=== PATIENT | female | born 1960 | race Caucasian/White ===

== ENCOUNTER 2016-08-07 21:43 | Inpatient (IN) | payer OTHER ==
[2016-08-07] MEDS ORDERED: Diltiazem 25 MG/5 ML SDV IVPUSH ONE (23:09)
--- NOTE | 2016-08-07 23:09 | EDM.PDOC ---
ED HISTORY OF PRESENT ILLNESS - General Chief Complaint: Cardiovascular Problem Stated Complaint: IRREGULAR HEART BEAT Time Seen by Provider: 08/07/16 22:18 Source of Information: Reports: Patient, Family (), RN notes reviewed History Limitations: Reports: No limitations - History of Present Illness INITIAL COMMENTS - FREE TEXT/NARRATIVE: The patient states that she was diagnosed with atrial flutter in 2011. She received medical treatment, and the atrial flutter terminated on its own. She then had atrial fib/atrial flutter in 2013. She was again treated with medication, and a workup included an echocardiogram, which apparently demonstrated a growth in the aortic arch area. The Cardiologists were apparently not sure if the growth had anything to do with the patient's dysrhythmia. The patient was placed on Eliquis, which she took for 2 years, discontinuing about one year ago. The patient states that she developed a weird neck and chest sensation this past , 08/03/2016. She felt poorly over the weekend and slept a lot, through yesterday. She states that she felt clammy and fatigued yesterday, and again today. Around noon today, the patient noticed that her heart rate was very rapid after going downstairs. Around 17:00 today she checked her pulse and found it to be irregular. She realized that she was likely back in atrial fibrillation. She states that she has had a few twinges of discomfort in her chest, but no chest pain, per se. No dyspnea, nausea, or diaphoresis. She states that she is constipated. No vomiting or diarrhea. No urinary symptoms. 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: Neurological History: Reports: Seizure (Following a traumatic brain injury) Endocrine/Metabolic History: Reports: Obesity/BMI 30+ - Past Surgical History HEENT Surgical History: Reports: Tonsillectomy GI Surgical History: Reports: Cholecystectomy, Colonoscopy, Polypectomy Female Surgical History: Reports: D&C (x 1) Neurological Surgical History: Reports: Other (see below) (Craniotomy and cranioplasty) Social & Family History - Tobacco Use Smoking Status *Q: Never Smoker - Alcohol Use Alcohol Use History: No - Recreational Drug Use Recreational Drug Use: No - Living Situation & Occupation Living situation: Reports: , with spouse, with family (2 kids) 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 Denies: diaphoresis HEENT: Reports: No symptoms Respiratory: Reports: No Symptoms. Denies: Shortness of Breath Cardiovascular: Reports: No symptoms Endocrine: Reports: no symptoms GI/Abdominal: Reports: Constipation. Denies: Diarrhea, Nausea, Vomiting : Reports: no symptoms. Denies: dysuria Musculoskeletal: Reports: no symptoms Skin: Reports: no symptoms Neurological: Reports: No Symptoms Hematologic/Lymphatic: Reports: no symptoms Immunologic: Reports: no symptoms ED EXAM, GENERAL - Physical Exam Exam: See Below Exam Limited By: No limitations General Appearance: alert, WD/WN, no apparent distress Eye Exam: bilateral eye: EOMI, normal inspection Ears: normal external exam, hearing grossly normal Ear Exam: bilateral ear: auricle normal Nose: normal inspection, no blood Throat/Mouth: Normal inspection, Normal lips, Normal voice, No airway compromise Head: atraumatic, normocephalic Neck: normal inspection, full range of motion Respiratory/Chest: no respiratory distress, lungs clear, normal breath sounds, no accessory muscle use, chest non-tender Cardiovascular: normal peripheral pulses, no edema, no gallop, no JVD, no murmur , no rub, tachycardia, irregularly irregular Peripheral Pulses: 4+: radial (L), radial (R) GI/Abdominal: normal bowel sounds, soft, non tender, no organomegaly, no distention, no abnormal bruit, no mass, other (Obese) Extremities: normal inspection, normal range of motion, normal capillary refill Neurological: alert, oriented, normal cognition, no motor/sensory deficits Psychiatric: normal affect Skin Exam: Warm, Dry, Intact, Normal color, No rash Lymphatic: no adenopathy EKG INTERPRETATION EKG Date: 08/07/16 Time: 21:53 Rhythm: a-fib (Atrial fibrillation) Rate (beats/min): 158 [place]: normal P-wave: absent QRS: normal ST-T: normal QT: normal Comparison: NA - no prior EKG Course - Vital Signs Last Recorded V/S: Last Vital Signs Temp 36.1 C 08/07/16 21:57 Pulse 82 08/08/16 02:54 Resp 29 H 08/07/16 21:57 BP 123/98 H 08/08/16 02:54 Pulse Ox 97 08/07/16 21:57 - Orders/Labs/Meds Orders: Active Orders 24 hr Category Date Time Status Admission Status [Patient Status] [ADT] Routine ADT 08/08/16 02:53 Active EKG 12 Lead [EKG Documentation Completion] [RC] STAT Care 08/07/16 22:46 Active Ang Chest [CT] Stat Exams 08/07/16 23:43 Taken Chest 2V [CR] Stat Exams 08/07/16 23:01 Taken CBC W/O DIFF,HEMOGRAM [HEME] MOTH@0700 Lab 08/10/16 07:00 Ordered CBC W/O DIFF,HEMOGRAM [HEME] MOTH@0700 Lab 08/14/16 07:00 Ordered CBC W/O DIFF,HEMOGRAM [HEME] MOTH@0700 Lab 08/17/16 07:00 Ordered CBC W/O DIFF,HEMOGRAM [HEME] MOTH@0700 Lab 08/21/16 07:00 Ordered CBC W/O DIFF,HEMOGRAM [HEME] MOTH@0700 Lab 08/24/16 07:00 Ordered CBC W/O DIFF,HEMOGRAM [HEME] MOTH@0700 Lab 08/28/16 07:00 Ordered Diltiazem [Cardizem] 100 mg Med 08/07/16 23:15 Active Sodium Chloride 0.9% [Normal Saline] 100 ml IV TITRATE Sodium Chloride 0.9% [Normal Saline] 1,000 ml Med 08/07/16 23:45 Active IV ASDIRECTED Medication Orders Diltiazem HCl 100 mg/ Sodium (Chloride) 100 mls @ 10 mls/hr IV TITRATE DIMITRIS; 10 MG/HR PRN Reason: Protocol Last Titration: 08/08/16 01:19 Dose: 20 mg/hr, 20 mls/hr Titration: 08/08/16 00:07 Dose: 15 mg/hr, 15 mls/hr Admin: 08/07/16 23:26 Dose: 10 mg/hr, 10 mls/hr Sodium Chloride (Normal Saline) 1,000 mls @ 150 mls/hr IV ASDIRECTED DIMITRIS Last Admin: 08/07/16 23:18 Dose: 150 mls/hr Labs: Laboratory Tests 08/07/16 08/07/16 08/07/16 Range/Units 22:35 22:35 22:35 WBC 15.63 H (3.98-10.04) K/mm3 RBC 5.28 H (3.98-5.22) M/mm3 Hgb 14.7 (11.2-15.7) gm/L Hct 45.3 H (34.1-44.9) % MCV 85.8 (79.4-94.8) fl MCH 27.8 (25.6-32.2) pg MCHC 32.5 (32.2-35.5) g/dl RDW Std Deviation 43.6 (36.4-46.3) fL Plt Count 303 (182-369) K/mm3 MPV 9.9 (9.4-12.3) fl Neutrophils % (Manual) 52 (40-60) % Band Neutrophils % 0 (0-10) % Lymphocytes % (Manual) 26 (20-40) % Atypical Lymphs % 5 % Monocytes % (Manual) 10 (2-10) % Eosinophils % (Manual) 6 H (0.7-5.8) % Basophils % (Manual) 1 (0.1-1.2) Platelet Estimate Adequate Plt Morphology Comment Normal RBC Morph Comment Normal PT 10.5 (8.0-13.0) SECONDS INR 0.97 APTT 30 (22-36) SECONDS D-Dimer, Quantitative 1.15 H (0.19-0.59) mg/L Sodium 140 (136-145) mEq/L Potassium 4.2 (3.5-5.1) mEq/L Chloride 107 (98-107) mEq/L Carbon Dioxide 23 (21-32) mEq/L Anion Gap 14.2 (5-15) BUN 14 (7-18) mg/dL Creatinine 0.9 (0.55-1.02) mg/dL Est Cr Clr Drug Dosing 80.80 mL/min Estimated GFR (MDRD) > 60 (>60) mL/min BUN/Creatinine Ratio 15.6 (14-18) Glucose 105 (74-106) mg/dL Calcium 9.0 (8.5-10.1) mg/dL Total Bilirubin 0.2 (0.2-1.0) mg/dL AST 16 (15-37) U/L ALT 27 (14-59) U/L Alkaline Phosphatase 156 H (46-116) U/L Troponin I < 0.017 (0.00-0.056) ng/mL B-Natriuretic Peptide (0-100) pg/mL Total Protein 7.4 (6.4-8.2) g/dl Albumin 3.5 (3.4-5.0) g/dl Globulin 3.9 gm/dL Albumin/Globulin Ratio 0.9 L (1-2) TSH 3rd Generation 4.475 H (0.358-3.74) uIU/mL 08/07/16 Range/Units 22:35 WBC (3.98-10.04) K/mm3 RBC (3.98-5.22) M/mm3 Hgb (11.2-15.7) gm/L Hct (34.1-44.9) % MCV (79.4-94.8) fl MCH (25.6-32.2) pg MCHC (32.2-35.5) g/dl RDW Std Deviation (36.4-46.3) fL Plt Count (182-369) K/mm3 MPV (9.4-12.3) fl Neutrophils % (Manual) (40-60) % Band Neutrophils % (0-10) % Lymphocytes % (Manual) (20-40) % Atypical Lymphs % % Monocytes % (Manual) (2-10) % Eosinophils % (Manual) (0.7-5.8) % Basophils % (Manual) (0.1-1.2) Platelet Estimate Plt Morphology Comment RBC Morph Comment PT (8.0-13.0) SECONDS INR APTT (22-36) SECONDS D-Dimer, Quantitative (0.19-0.59) mg/L Sodium (136-145) mEq/L Potassium (3.5-5.1) mEq/L Chloride (98-107) mEq/L Carbon Dioxide (21-32) mEq/L Anion Gap (5-15) BUN (7-18) mg/dL Creatinine (0.55-1.02) mg/dL Est Cr Clr Drug Dosing mL/min Estimated GFR (MDRD) (>60) mL/min BUN/Creatinine Ratio (14-18) Glucose (74-106) mg/dL Calcium (8.5-10.1) mg/dL Total Bilirubin (0.2-1.0) mg/dL AST (15-37) U/L ALT (14-59) U/L Alkaline Phosphatase (46-116) U/L Troponin I (0.00-0.056) ng/mL B-Natriuretic Peptide 137 H (0-100) pg/mL Total Protein (6.4-8.2) g/dl Albumin (3.4-5.0) g/dl Globulin gm/dL Albumin/Globulin Ratio (1-2) TSH 3rd Generation (0.358-3.74) uIU/mL Meds: Medications Generic Name Dose Route Start Last Admin Trade Name Freq PRN Reason Stop Dose Admin Diltiazem HCl 100 mg/ Sodium 100 mls @ 10 mls/hr 08/07/16 23:15 08/08/16 01: 19 Chloride IV 20 mg/hr TITRATE DIMITRIS 20 mls/hr Protocol Titration 10 MG/HR Sodium Chloride 1,000 mls @ 150 mls/hr 08/07/16 23:45 08/07/16 23:18 Normal Saline IV 150 mls/hr ASDIRECTED DIMITRIS Administration Discontinued Medications Generic Name Dose Route Start Last Admin Trade Name Freq PRN Reason Stop Dose Admin Diltiazem HCl 20 mg 08/07/16 23:09 08/07/16 23:18 Diltiazem IVPUSH 08/07/16 23:10 20 mg ONETIME ONE Administration Enoxaparin Sodium 140 mg 08/08/16 02:29 08/08/16 02:45 Lovenox SUBCUT 08/08/16 02:30 140 mg ONETIME STA Administration Metoprolol Tartrate 5 mg 08/08/16 02:14 08/08/16 02:20 Lopressor IVPUSH 08/08/16 02:15 5 mg ONETIME ONE Administration Metoprolol Tartrate 5 mg 08/08/16 02:49 08/08/16 02:54 Lopressor IVPUSH 08/08/16 02:50 5 mg ONETIME ONE Administration - Radiology Interpretation Free Text/Narrative:: Two-view chest radiograph appears to be grossly normal. Cardiac silhouette is within normal limits. No pulmonary vascular congestion. No pleural effusions. No focal infiltrate. No pneumothorax. Formal read per the Radiologist pending. CT angiogram of the chest is read by [facility] as: 1. Mild pulmonary edema and trace right pleural effusion 2. 5 cm right paratracheal mass looks to be a cyst. Likely this is either GI or pericardial in origin. Necrotic an tissue would be lower on the differential diagnosis. Ideally the patient has comparison studies not available to me that would document stability. Addendum: No evidence of pulmonary embolus. - Re-Assessments/Exams Free Text/Narrative Re-Assessment/Exam: 08/08/16 02:30 Test results discussed with the patient and her . Today's workup is unremarkable, and does not explain the cause of the patient's atrial fibrillation. Her D-dimer was elevated at 1.15, but the CT angiogram is negative for a PE. Her TSH is mildly elevated, suggesting hypothyroidism, not hyperthyroidism. We have not made much progress with respect to reducing the patient's heart rate with the Cardizem IV push and drip. She is currently at 20 mg per hour. I have ordered Lopressor 5 mg, with the intention of repeating this several times, to see if we can get the patient's heart rate closer to 100. Nevertheless, we do not need to wait until the patient's heart rate is reduced before making arrangements to admit her to the ICU. Paging Dr. Lewis. 08/08/16 02:[address] Lewis at 02:49. He accepts the patient for admission to the ICU, and asks that I write bridge orders. Departure - Departure Time of Disposition: 02:53 Disposition: Admitted As Inpatient 68 Condition: fair Clinical Impression: Atrial fibrillation with rapid ventricular response Referrals: Camila Del Toro MD [Primary Care Provider] - - My Orders Last 24 Hours: My Active Orders 08/07/16 22:46 EKG 12 Lead [EKG Documentation Completion] [RC] STAT 08/07/16 23:01 Chest 2V [CR] Stat 08/07/16 23:15 Diltiazem [Cardizem] 100 mg Sodium Chloride 0.9% [Normal Saline] 100 ml IV TITRATE 08/07/16 23:43 Ang Chest [CT] Stat 08/07/16 23:45 Sodium Chloride 0.9% [Normal Saline] 1,000 ml IV ASDIRECTED 08/08/16 02:53 Admission Status [Patient Status] [ADT] Routine 08/10/16 07:00 CBC W/O DIFF,HEMOGRAM [HEME] MOTH@0700 08/14/16 07:00 CBC W/O DIFF,HEMOGRAM [HEME] MOTH@69908/17/16 07:00 CBC W/O DIFF,HEMOGRAM [HEME] MOTH@69908/21/16 07:00 CBC W/O DIFF,HEMOGRAM [HEME] MOTH@69908/24/16 07:00 CBC W/O DIFF,HEMOGRAM [HEME] MOTH@69908/28/16 07:00 CBC W/O DIFF,HEMOGRAM [HEME] MOTH@699 - Assessment/Plan Last 24 Hours: My Active Orders 08/07/16 22:46 EKG 12 Lead [EKG Documentation Completion] [RC] STAT 08/07/16 23:01 Chest 2V [CR] Stat 08/07/16 23:15 Diltiazem [Cardizem] 100 mg Sodium Chloride 0.9% [Normal Saline] 100 ml IV TITRATE 08/07/16 23:43 Ang Chest [CT] Stat 08/07/16 23:45 Sodium Chloride 0.9% [Normal Saline] 1,000 ml IV ASDIRECTED 08/08/16 02:53 Admission Status [Patient Status] [ADT] Routine 08/10/16 07:00 CBC W/O DIFF,HEMOGRAM [HEME] MOTH@69908/14/16 07:00 CBC W/O DIFF,HEMOGRAM [HEME] MOTH@69908/17/16 07:00 CBC W/O DIFF,HEMOGRAM [HEME] MOTH@69908/21/16 07:00 CBC W/O DIFF,HEMOGRAM [HEME] MOTH@69908/24/16 07:00 CBC W/O DIFF,HEMOGRAM [HEME] MOTH@69908/28/16 07:00 CBC W/O DIFF,HEMOGRAM [HEME] MOTH@699
[2016-08-07] MEDS: Diltiazem 100 MG in Sodium Chloride 0.9% 100 ML IV SCH (23:26)
[2016-08-07] MEDS ORDERED: Sodium Chloride 0.9% 1,000 ML IV SCH (23:45)
[2016-08-08] MEDS ORDERED: Metoprolol Tartrate 5 MG/5 ML SDV IVPUSH ONE ×2 (02:14→02:49)
[2016-08-08] MEDS ORDERED: Enoxaparin 150 MG/1 ML Syringe SUBCUT STA (02:29)
[2016-08-08] MEDS ORDERED: Sodium Chloride 0.9% 1,000 ML IV SCH (04:00)
[2016-08-08] MEDS: Diltiazem 100 MG in Sodium Chloride 0.9% 100 ML IV SCH ×2 (04:32→21:00)
[2016-08-08] MEDS ORDERED: Metoprolol Tartrate 5 MG/5 ML SDV ONE (04:46)
[2016-08-08] MEDS: Metoprolol Tartrate 5 MG/5 ML SDV IVPUSH PRN ×4 (04:49→16:44)
[2016-08-08] MEDS ORDERED: Digoxin 500 MCG/2 ML Amp IVPUSH ONE (06:15)
--- NOTE | 2016-08-08 08:15 | PCM.HP ---
H&P History of Present Illness - General Date of Service: 08/08/16 Admit Problem/Dx: Admission Diagnosis/Problem Admission Diagnosis/Problem Rapid atrial fibrillation Source of Information: Patient, Old records, Provider, RN notes reviewed History Limitations: Reports: No limitations - History of Present Illness Initial Comments - Free Text/Narative: This is a 55 yo white female with past medical hx/o Stress Incontinence, Seizure 2/2 Hx/o TBI, and Obesity who comes in with complaints of rapid heart palpitation associated abnormal sensation of neck and chest and fatigue. She denies denies any feeling of dizziness or lightheadedness. No shortness of breath, dyspnea, nausea or vomiting. 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 On presentation to ED she was in a-fib with rvr with heart rate as high as 150s. He initial work up in ED shows a CBC remarkable for WBC of 15.63 and Hct of 45.3. Her chemistry is significant for Alk Phos 156, BNP 137, TSH 4.475, FT4 1/10 and D-Dimer 1.15. Her CRX shows soft tissue prominence to the righ side of the mediastinum. Chest CT scan shows no PE. Minimal right sided pleural effusion. Patchy ground glass appearance within both lungs possibly representing vascular congestion. 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 Patient is currently on cardizem rip to control her Afib RVR. She is full code. Chest Pain Score (Numeric/FACES): 2 - Related Data Allergies/Adverse Reactions: Allergies Allergy/AdvReac Type Severity Reaction Status Date / Time divalproex sodium AdvReac Abdominal Verified 08/08/16 15:51 [From Depakote] Pain Home Medications: Home Meds Diltiazem [Cardizem CD] 240 mg PO DAILY 08/07/16 [History] Black Cohosh Root [Black Cohosh] 1 cap PO DAILY 08/08/16 [History] Cholecalciferol (Vitamin D3) [Vitamin D] 4,000 units PO DAILY 08/08/16 [History] Vitamin B Complex 1 cap PO DAILY 08/08/16 [History] carBAMazepine [Carbamazepine] 200 mg PO DAILY 08/08/16 [History] Past Medical History HEENT History: Reports: Impaired vision Other HEENT History: Wears glasses Cardiovascular History: Reports: Afib Genitourinary History: Reports: 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: Neurological History: Reports: 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 Endocrine/Metabolic History: Reports: Obesity/BMI 30+ - Past Surgical History HEENT Surgical History: Reports: Tonsillectomy GI Surgical History: Reports: Cholecystectomy, Colonoscopy, Polypectomy Female Surgical History: Reports: D&C Social & Family History - Family History Family Medical History: Noncontributory - Tobacco Use Smoking Status *Q: Never Smoker Second Hand Smoke Exposure: No - Caffeine Use Caffeine Use: Reports: None - Recreational Drug Use Recreational Drug Use: No - Living Situation & Occupation Living situation: Reports: , with spouse, with family (2 kids) 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 Denies: chest pain, dyspnea on exertion , edema, lightheadedness, syncope, blood pressure problem Gastrointestinal: Denies: Abdominal pain, Nausea, Vomiting Genitourinary: Reports: no symptoms Musculoskeletal: Reports: no symptoms Skin: Denies: rash, erythema, wound Psychiatric: Denies: depression, mood lability, anxiety, hallucinations Neurological: Denies: Confusion, Difficulty Walking, Weakness, Gait Disturbance Hematologic/Lymphatic: Reports: no symptoms Immunologic: Reports: no symptoms Exam - Exam Exam: See Below - Vital Signs Vital Signs: Last Vital Signs Temp 36.2 C 08/08/16 03:37 Pulse 137 H 08/08/16 07:00 Resp 18 08/08/16 07:00 BP 103/78 08/08/16 07:00 Pulse Ox 95 08/08/16 07:00 Weight: 139.48 kg - Exam General: alert, oriented, cooperative, mild distress, other (Obese) HEENT: Conjunctiva clear, EACs clear, EOMI, Hearing intact, Mucosa moist & pink , Nares patent, Normal nasal septum, Posterior pharynx clear, PERRLA Neck: supple, trachea midline, 2+ carotid pulse wo bruit, full range of motion, other (short and thick) Lungs: Clear to auscultation, Normal respiratory effort Cardiovascular: irregular rhythm, other (irregular rate) Abdomen: normal bowel sounds, soft, other (Obese). No: organomegaly (Female) Exam: Deferred Rectal (Female) Exam: Deferred Back Exam: normal inspection, decreased range of motion Extremities: normal inspection, normal pulses. No: clubbing, cyanosis, calf tenderness, edema Peripheral Pulses: 2+: dorsalis pedis (L), dorsalis pedis (R) Skin: warm, dry, intact Neuro Extensive - Mental Status: oriented x3, normal cognition, memory intact Neuro Extensive - Motor, Sensory, Reflexes: CN II-XII intact, normal gait Psychiatric: alert, normal affect, normal mood - Patient Data Result Diagrams: 08/08/16 08:31 08/08/16 08:31 EKG INTERPRETATION EKG Date: 08/08/16 Time: 21:53 Rhythm: a-fib Rate (beats/min): 158 [place]: normal P-wave: absent QRS: normal ST-T: normal QT: normal Comparison: NA - no prior EKG *Q Meaningful Use (ADM) - VTE *Q VTE Criteria *Q: - Stroke *Q Stroke Criteria *Q: - AMI *Q AMI Criteria *Q: Problem List Initiated/Reviewed/Updated: Yes Orders Last 24hrs: Active Orders 24 hr Category Date Time Status Regular Diet [DIET] Diet 08/08/16 Breakfast Active DIGOXIN [CHEM] Routine Lab 08/08/16 11:00 Ordered Digoxin [Lanoxin] Med 08/08/16 10:30 Active 125 mcg IVPUSH Q4H Enoxaparin [Lovenox] Med 08/08/16 09:00 Active 140 mg SUBCUT Q12HR Metoprolol Tartrate [Lopressor] Med 08/08/16 04:42 Active 5 mg IVPUSH Q4H PRN Sodium Chloride 0.9% [Normal Saline] 1,000 ml Med 08/08/16 04:00 Active IV ASDIRECTED Code Status [Resuscitation Status] Routine Resus Stat 08/08/16 03:49 Ordered Medication Orders Digoxin (Lanoxin) 125 mcg IVPUSH Q4H DIMITRIS Stop: 08/08/16 18:31 Enoxaparin Sodium (Lovenox) 140 mg SUBCUT Q12HR DIMITRIS Diltiazem HCl 100 mg/ Sodium (Chloride) 100 mls @ 10 mls/hr IV TITRATE DIMITRIS; 10 MG/HR PRN Reason: Protocol Last Admin: 08/08/16 04:32 Dose: 20 mg/hr, 20 mls/hr Titration: 08/08/16 04:32 Dose: 20 mg/hr, 20 mls/hr Titration: 08/08/16 01:19 Dose: 20 mg/hr, 20 mls/hr Titration: 08/08/16 00:07 Dose: 15 mg/hr, 15 mls/hr Admin: 08/07/16 23:26 Dose: 10 mg/hr, 10 mls/hr Sodium Chloride (Normal Saline) 1,000 mls @ 150 mls/hr IV ASDIRECTED DIMITRIS Last Infusion: 08/08/16 04:34 Dose: 100 mls/hr Admin: 08/07/16 23:18 Dose: 150 mls/hr Sodium Chloride (Normal Saline) 1,000 mls @ 100 mls/hr IV ASDIRECTED DIMITRIS Metoprolol Tartrate (Lopressor) 5 mg IVPUSH Q4H PRN PRN Reason: HR >110 Last Admin: 08/08/16 04:49 Dose: 5 mg Assessment/Plan Comment:: Assessment: Acute: Paroxysmal Atrial Fibrillation with RVR - Currently on Cardizem drip - Resume home oral cardizem dose once off drip - Continue Eliquis 5 mg po BID for stroke prophylaxis - PRN IV Lopressor Q4 for HR > 110 - Digoxin IVP PRN Q4 if no response to cardizem drip - Follow up with cardiology after d/c 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
[2016-08-08] MEDS ORDERED: hydrALAZINE 20 MG/ML SDV IVPUSH PRN (08:16)
[2016-08-08] MEDS ORDERED: Albuterol/Ipratropium 3.0-0.5 MG/3 ML Neb Soln NEB PRN (08:17)
[2016-08-08] MEDS ORDERED: Bisacodyl 5 MG Tab PO PRN (08:17)
[2016-08-08] MEDS ORDERED: Acetaminophen 325 MG Tab PO PRN (08:17)
[2016-08-08] MEDS ORDERED: HYDROmorphone 0.5 MG/0.5 ML Syringe IVPUSH PRN (08:17)
[2016-08-08] MEDS ORDERED: Polyethylene Glycol 3350 Powder 17 GM Packet PO PRN (08:17)
[2016-08-08] MEDS ORDERED: Temazepam 15 MG Cap PO PRN (08:17)
[2016-08-08] MEDS ORDERED: Acetaminophen/HYDROcodone 325-5 MG Tab PO PRN (08:17)
[2016-08-08] MEDS ORDERED: Ondansetron 4 MG/2 ML SDV IV PRN (08:17)
[2016-08-08] MEDS ORDERED: Promethazine 12.5 MG in Sodium Chloride 0.9% 50 ML IV PRN (08:17)
--- NOTE | 2016-08-08 09:39 | CR ---
Chest: Two views of the chest were obtained. Comparison: No previous study. Soft tissue prominence seen to the right side of the mediastinum. This correlates to mediastinal mass on subsequent CT exam. Lungs are clear. Heart size is normal. Bony structures are unremarkable. Surgical clips are noted from prior cholecystectomy within the upper right abdomen. Impression: 1. Soft tissue prominence to the right side of the mediastinum correlating to abnormality on subsequent chest CT. 2. Other incidental findings with nothing acute being seen. Diagnostic code #3
--- NOTE | 2016-08-08 09:39 | CT ---
CT chest Technique: Multiple axial sections from above the lung apices were obtained inferiorly through the lung bases. Intravenous contrast was utilized. Comparison: Previous chest x-ray of 08/07/16. Findings: Right paratracheal mass is seen which extends anterior to the trachea and posterior to the inferior vena cava. This has maximum AP dimension of 5.6 cm and transverse dimension of 4.0 cm. This has Hounsfield unit measurements of fluid. No additional mediastinal abnormality is seen. No pericardial thickening is seen. Small portion of the visualized upper abdominal structures are unremarkable. Surgical clips are seen from prior cholecystectomy. Very minimal right-sided pleural effusion is seen which is felt to be incidental. Patchy ground-glass appearance seen within both lungs which may represent minimal pulmonary vascular congestion. Lungs otherwise are clear. No findings of pulmonary embolism are seen. Impression: 1. Minimal right-sided pleural effusion. Patchy ground-glass appearance within both lungs possibly representing minimal pulmonary vascular congestion. 2. Right-sided mediastinal mass having Hounsfield unit measurement of fluid with differential including a GI duplication cyst or pericardial cyst. 3. Other incidental findings. No findings of pulmonary embolism. Diagnostic code #3 Agree with preliminary report issued by [employer] (preliminary [facility] report dictated on 08/08/16, 1:57 AM [employer] Type)
[2016-08-08] MEDS: Enoxaparin 150 MG/1 ML Syringe SUBCUT SCH ×2 (10:12→22:07)
[2016-08-08] MEDS: Digoxin 500 MCG/2 ML Amp IVPUSH SCH ×3 (10:27→18:29)
[2016-08-08] MEDS ORDERED: Metoprolol Tartrate 50 MG Tab PO SCH (21:00)
[2016-08-08] MEDS ORDERED: carBAMazepine 200 MG Tab PO ONE (21:30)
[2016-08-08] MEDS: Apixaban 5 MG Tab PO SCH (22:07)
[2016-08-08] MEDS: LORazepam 2 MG/ML MDV IV PRN (22:07)
[2016-08-09] MEDS: Diltiazem 100 MG in Sodium Chloride 0.9% 100 ML IV SCH ×2 (01:15→07:13)
[2016-08-09] MEDS ORDERED: Digoxin 250 MCG Tab PO SCH (09:00)
[2016-08-09] MEDS ORDERED: Diltiazem 240 MG Cap.ER PO SCH (09:00)
[2016-08-09] MEDS: Metoprolol Tartrate 100 MG Tab PO SCH ×2 (09:04→21:23)
[2016-08-09] MEDS: Cholecalciferol (Vitamin D3) 1,000 Unit Tab PO SCH (09:04)
[2016-08-09] MEDS: Apixaban 5 MG Tab PO SCH ×2 (09:05→21:23)
[2016-08-09] MEDS: Vitamin B Complex With Vitamin C Cap PO SCH (09:05)
[2016-08-09] MEDS ORDERED: Amiodarone In Dextrose,Iso-Osm 150 MG in Premix Bag 1 BAG IV ONE ×4 (10:29→14:01)
[2016-08-09] MEDS ORDERED: Amiodarone In Dextrose,Iso-Osm 200 ML IV ONE (12:00)
[2016-08-09] MEDS: Metoprolol Tartrate 5 MG/5 ML SDV IVPUSH PRN ×2 (13:35→17:28)
[2016-08-09] MEDS ORDERED: Amiodarone In Dextrose,Iso-Osm 200 ML ONE (17:46)
[2016-08-09] MEDS ORDERED: Verapamil 5 MG/2 ML SDV IVPUSH ONE (18:57)
--- NOTE | 2016-08-09 19:03 | PCM.PN ---
- General Info Date of Service: 08/09/16 Functional Status: Reports: tolerating diet, ambulating, urinating - Review of Systems General: Reports: No Symptoms HEENT: Reports: no symptoms Pulmonary: Reports: no symptoms Cardiovascular: Reports: No Symptoms Gastrointestinal: Reports: No symptoms Genitourinary: Reports: no symptoms Musculoskeletal: Reports: no symptoms Skin: Reports: no symptoms Neurological: Reports: No Symptoms Psychiatric: Reports: no symptoms - Patient Data Vitals - most recent: Last Vital Signs Temp 36.4 C 08/09/16 16:00 Pulse 128 H 08/09/16 18:46 Resp 16 08/09/16 12:00 BP 146/93 H 08/09/16 18:46 Pulse Ox 98 08/09/16 12:00 Weight - most recent: 139.117 kg I&O - last 24 hours: Intake & Output 08/09/16 08/09/16 08/09/16 06:59 14:59 22:59 Intake Total 4802 108 2646 Balance 3190 440 2889 Lab Results last 24 hrs: Laboratory Results - last 24 hr 08/09/16 Range/Units 09:18 Digoxin 0.4 L (0.9-2.0) ng/mL Med Orders - Current: Current Medications Acetaminophen (Tylenol) 650 mg PO Q4H PRN PRN Reason: Pain (Mild 1-3)/fever Acetaminophen/Hydrocodone Bitart ([place] 325-5 Mg) 1 tab PO Q4H PRN PRN Reason: Pain (moderate 4-6) Albuterol/Ipratropium (Duoneb 3.0-0.5 Mg/3 Ml) 3 ml NEB Q4H PRN PRN Reason: Shortness Of Breath/wheezing Apixaban (Eliquis) 5 mg PO BID ON LICENSE OF [facility] Last Admin: 08/09/16 09:05 Dose: 5 mg Bisacodyl (Dulcolax) 5 mg PO DAILY PRN PRN Reason: Constipation Carbamazepine (Tegretol Tab) 200 mg PO DAILY@2200 ON LICENSE OF [facility] Cholecalciferol (Vitamin D3) 4,000 units PO DAILY ON LICENSE OF [facility] Last Admin: 08/09/16 09:04 Dose: 4,000 units Digoxin (Lanoxin) 250 mcg PO DAILY ON LICENSE OF [facility] Last Admin: 08/09/16 10:31 Dose: Not Given Hydralazine HCl (Apresoline) 20 mg IVPUSH Q4H PRN PRN Reason: Hypertension Hydromorphone HCl (Dilaudid) 0.25 mg IVPUSH Q2H PRN PRN Reason: Pain (severe 7-10) Diltiazem HCl 100 mg/ Sodium (Chloride) 100 mls @ 10 mls/hr IV TITRATE DIMITRIS; 10 MG/HR PRN Reason: Protocol Last Admin: 08/09/16 07:13 Dose: 20 mg/hr, 20 mls/hr Promethazine HCl 12.5 mg/ (Sodium Chloride) 50.5 mls @ 100 mls/hr IV Q6H PRN PRN Reason: Nausea/Vomiting Lorazepam (Ativan) 1 mg IV Q6H PRN PRN Reason: Anxiety Last Admin: 08/08/16 22:07 Dose: 1 mg Magnesium Sulfate (Pharmacy To Dose - Magnesium Replacement) 0 dose .XX ASDIRECTED PRN PRN Reason: rx dose Metoprolol Tartrate (Lopressor) 5 mg IVPUSH Q4H PRN PRN Reason: Tachycardia Last Admin: 08/09/16 17:28 Dose: 5 mg Metoprolol Tartrate (Lopressor) 100 mg PO Q12HR ON LICENSE OF [facility] Last Admin: 08/09/16 09:04 Dose: 100 mg Ondansetron HCl (Zofran) 4 mg IV Q6H PRN PRN Reason: Nausea/Vomiting Polyethylene Glycol (Miralax) 17 gm PO DAILY PRN PRN Reason: Constipation Potassium Chloride (Pharmacy To Dose - Potassium Replacement) 0 dose .XX ASDIRECTED PRN PRN Reason: rx dose Senna/Docusate Sodium (Senna Plus) 1 tab PO BID PRN PRN Reason: Constipation Temazepam (Restoril) 15 mg PO BEDTIME PRN PRN Reason: Sleep Verapamil HCl (Calan) 5 mg IVPUSH ONETIME ONE Stop: 08/09/16 18:58 Verapamil HCl (Calan Sr) 180 mg PO BID ON LICENSE OF [facility] Vitamin B Complex/Vitamin C (Super B With Vitamin C) 1 cap PO DAILY ON LICENSE OF [facility] Last Admin: 08/09/16 09:05 Dose: 1 cap Discontinued Medications Carbamazepine (Tegretol Tab) 200 mg PO ONETIME ONE Stop: 08/08/16 21:31 Last Admin: 08/08/16 22:06 Dose: 200 mg Digoxin (Lanoxin) 125 mcg IVPUSH Q4H ON LICENSE OF [facility] Stop: 08/08/16 18:31 Last Admin: 08/08/16 18:29 Dose: 125 mcg Digoxin (Lanoxin) 125 mcg IVPUSH ONETIME ONE Stop: 08/08/16 06:16 Last Admin: 08/08/16 06:33 Dose: 125 mcg Diltiazem HCl (Diltiazem) 20 mg IVPUSH ONETIME ONE Stop: 08/07/16 23:10 Last Admin: 08/07/16 23:18 Dose: 20 mg Diltiazem HCl (Dilacor Xr) 240 mg PO DAILY ON LICENSE OF [facility] Last Admin: 08/09/16 09:05 Dose: 240 mg Enoxaparin Sodium (Lovenox) 140 mg SUBCUT ONETIME STA Stop: 08/08/16 02:30 Last Admin: 08/08/16 02:45 Dose: 140 mg Enoxaparin Sodium (Lovenox) 140 mg SUBCUT Q12HR ON LICENSE OF [facility] Last Admin: 08/08/16 22:07 Dose: 140 mg Sodium Chloride (Normal Saline) 1,000 mls @ 150 mls/hr IV ASDIRECTED DIMITRIS Last Infusion: 08/08/16 04:34 Dose: 100 mls/hr Sodium Chloride (Normal Saline) 1,000 mls @ 100 mls/hr IV ASDIRECTED DIMITRIS Amiodarone HCl/Dextrose 150 mg (/ Premix) 100 mls @ 582.524 mls/hr IV .BOLUS ONE Stop: 08/09/16 10:39 Last Admin: 08/09/16 10:42 Dose: 582.524 mls/hr Amiodarone HCl/Dextrose (Nexterone In Dextrose 360 Mg/200 Ml) 200 mls @ 33.333 mls/hr IV ASDIRECTED ONE PRN Reason: Protocol Stop: 08/09/16 17:59 Last Infusion: 08/09/16 17:53 Dose: 16.6 mls/hr Amiodarone HCl/Dextrose 150 mg (/ Premix) 100 mls @ 600 mls/hr IV .BOLUS ONE Stop: 08/09/16 14:10 Last Admin: 08/09/16 14:09 Dose: 600 mls/hr Amiodarone HCl/Dextrose (Nexterone In Dextrose 360 Mg/200 Ml) Confirm Administered Dose 200 mls @ as directed .ROUTE .STK-MED ONE Stop: 08/09/16 17:47 Last Admin: 08/09/16 17:52 Dose: Not Given Metoprolol Tartrate (Lopressor) 5 mg IVPUSH ONETIME ONE Stop: 08/08/16 02:15 Last Admin: 08/08/16 02:20 Dose: 5 mg Metoprolol Tartrate (Lopressor) 5 mg IVPUSH ONETIME ONE Stop: 08/08/16 02:50 Last Admin: 08/08/16 02:54 Dose: 5 mg Metoprolol Tartrate (Lopressor) 5 mg IVPUSH Q4H PRN PRN Reason: HR >110 Last Admin: 08/08/16 08:33 Dose: 5 mg Metoprolol Tartrate (Lopressor) Confirm Administered Dose 5 mg .ROUTE .STK-MED ONE Stop: 08/08/16 04:47 Last Admin: 08/08/16 05:00 Dose: Not Given Metoprolol Tartrate (Lopressor) 50 mg PO Q12HR DIMITRIS Last Admin: 08/08/16 22:07 Dose: 50 mg - Exam Quality Assessment: DVT prophylaxis General: alert, oriented, cooperative, no acute distress HEENT: Pupils equal, Pupils reactive, EOMI Neck: supple, trachea midline Lungs: Clear to auscultation, Normal respiratory effort Cardiovascular: Regular Rate, Irregular Rhythm, Tachycardia Abdomen: bowel sounds present, soft, no tenderness, no distension (Female) Exam: Deferred Back Exam: normal inspection Extremities: normal pulses Skin: warm Neurological: no new focal deficit, normal speech Psy/Mental Status: alert, normal affect, normal mood - Problem List Review Problem List Initiated/Reviewed/Updated: Yes - My Orders Last 24 Hours: My Active Orders 08/09/16 18:57 Verapamil [Calan] 5 mg IVPUSH ONETIME ONE 08/09/16 21:00 Verapamil [Calan SR] 180 mg PO BID - Plan Plan:: Assessment: Acute: Paroxysmal Atrial Fibrillation with RVR - Cardizem drip, stopped; start amiodarone - Resume home oral cardizem dose once off drip - Continue Eliquis 5 mg po BID for stroke prophylaxis - PRN IV Lopressor Q4 for HR > 110 - Digoxin IVP, stopped. 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
[2016-08-09] MEDS ORDERED: Diltiazem 25 MG/5 ML SDV IVPUSH ONE (20:48)
[2016-08-09] MEDS: Verapamil 180 MG Tab.ER PO SCH (21:22)
[2016-08-09] MEDS ORDERED: carBAMazepine 200 MG Tab PO SCH (22:00)
[2016-08-09] MEDS: LORazepam 2 MG/ML MDV IV PRN (23:57)
[2016-08-10] MEDS ORDERED: Amiodarone In Dextrose,Iso-Osm 200 ML ONE (05:33)
[2016-08-10] MEDS ORDERED: Amiodarone In Dextrose,Iso-Osm 200 ML IV SCH (05:45)
[2016-08-10] MEDS: Metoprolol Tartrate 100 MG Tab PO SCH (08:23)
[2016-08-10] MEDS: Verapamil 180 MG Tab.ER PO SCH (08:23)
[2016-08-10] MEDS: Cholecalciferol (Vitamin D3) 1,000 Unit Tab PO SCH (08:23)
[2016-08-10] MEDS: Apixaban 5 MG Tab PO SCH (08:23)
[2016-08-10] MEDS: Vitamin B Complex With Vitamin C Cap PO SCH (08:24)
[2016-08-10] MEDS ORDERED: Metoprolol Tartrate 5 MG/5 ML SDV IVPUSH PRN (11:22)
[2016-08-10] MEDS ORDERED: Metoprolol Tartrate 5 MG/5 ML SDV IVPUSH ONE (12:25)
[2016-08-10 17:53] VITALS: BP 132/90
--- NOTE | 2016-08-10 19:08 | PCM.DCSUM1 ---
Discharge Summary - Hospital Course Free Text/Narrative:: 55 year old female originally from [place], relocated to [place] and has had a cardiac assessment by Dr Camila Del Toro in [place]. At that time she was in [place], howver has a history of persistent typical atrial flutter as well as PAF. On August 08, she presented in A Fib with RVR. She has had resistant A Fib with RVR in spite of several medications. She has remained hemodynamically stable on Verapamil 180 mg BID, Lopressor 100 mg BID as well as an Amidarone drip. An echo was pending at the time of transfer to [facility]; a prior echo 2014, documented a preserved LVEF with moderated enlarged left atrium. The patient has been transferred to maximize the level of care need for the A Fib including but not limited to cardioversion. She was transferred to [place] by [facility]. A sign out was provided to the hospitalist, Dr Bishop as well as healthcare sales representative, Dr Pearl. An EP consult will be performed in the morning. The patient and her spouse were agreeable to the transfer. A CTA was performed on admission, it documents a 5.6 x 4.0 cm mass; previous documented size is unknown. Prior cardiology care was obtained at [place], [place]. [id number] was 2, Eliquis 5 mg BID was started. The patient had been on it in the past, the EMR from her previous care in [place] and [place] have been provided with her portable chart. Primary Dx Resistant A Fib with RVR Hypertension Hyperlipidemia Mediastinal mass, unspecified Activity as tolerated Diet Heart Healthy Follow up TBD Disposition Transfer to hospitalist service with EP consult for A Fib with RVR. - Discharge Data Discharge Date: 08/10/16 Discharge Disposition: DC/Tfer to Acute Hospital 02 Condition: Good - Patient Summary/Data Consults: Consultations 08/08/16 08:17 Consult to Case Management [CONS] Routine Consult to Insurance Healthcare Representative [CONS] Routine 08/10/16 09:00 Consult to Dietary [Consult to Applications Sales Representative] [CONS] Routine - Patient Instructions Diet: Usual Diet as Tolerated Activity: Bedrest, May Use Bathroom Driving: Do Not Drive Showering/Bathing: May Shower Notify Provider of: Nausea and/or Vomiting - Discharge Plan Home Medications: Home Meds Black Cohosh Root [Black Cohosh] 1 cap PO DAILY 08/08/16 [History] Cholecalciferol (Vitamin D3) [Vitamin D] 4,000 units PO DAILY 08/08/16 [History] Vitamin B Complex 1 cap PO DAILY 08/08/16 [History] carBAMazepine [Carbamazepine] 200 mg PO DAILY 08/08/16 [History] Patient Handouts: Atrial Fibrillation, [id number] Referrals: Ashwin Noble DO [Ordering Only Provider] - 08/11/16 1:00 pm ([facility]. Appointment time is in Central Standard Time.) Camila Del Toro MD [Primary Care Provider] - - Discharge Summary/Plan Comment DC Time >30 min.: No - General Info Date of Service: 08/08/16 Functional Status: Reports: pain controlled, tolerating diet, ambulating, urinating - Review of Systems General: Reports: No Symptoms HEENT: Reports: no symptoms Pulmonary: Reports: shortness of breath (minimal) Cardiovascular: Reports: Palpitations (minimal) Gastrointestinal: Reports: No symptoms Genitourinary: Reports: no symptoms Musculoskeletal: Reports: no symptoms Skin: Reports: no symptoms Neurological: Reports: No Symptoms Psychiatric: Reports: no symptoms - Patient Data Vitals - Most Recent: Last Vital Signs Temp 36.5 C 08/10/16 12:00 Pulse 125 H 08/10/16 17:00 Resp 14 08/10/16 12:00 BP 132/90 08/10/16 17:00 Pulse Ox 96 08/10/16 12:00 Weight - Most Recent: 139.525 kg I&O - Last 24 hours: Intake & Output 08/10/16 08/10/16 08/10/16 06:59 14:59 22:59 Intake Total 978 240 835 Balance 978 240 835 Lab Results - Last 24 hrs: Laboratory Results - last 24 hr 08/10/16 08/10/16 08/10/16 Range/Units 05:56 05:56 05:56 WBC 10.74 H (3.98-10.04) K/mm3 RBC 5.06 (3.98-5.22) M/mm3 Hgb 14.2 (11.2-15.7) gm/L Hct 43.3 (34.1-44.9) % MCV 85.6 (79.4-94.8) fl MCH 28.1 (25.6-32.2) pg MCHC 32.8 (32.2-35.5) g/dl RDW Std Deviation 42.8 (36.4-46.3) fL Plt Count 287 (182-369) K/mm3 MPV 9.8 (9.4-12.3) fl Sodium 143 (136-145) mEq/L Potassium 4.2 (3.5-5.1) mEq/L Chloride 109 H (98-107) mEq/L Carbon Dioxide 24 (21-32) mEq/L Anion Gap 14.2 (5-15) BUN 11 (7-18) mg/dL Creatinine 0.8 (0.55-1.02) mg/dL Est Cr Clr Drug Dosing 90.50 mL/min Estimated GFR (MDRD) > 60 (>60) mL/min BUN/Creatinine Ratio 13.8 L (14-18) Glucose 95 (74-106) mg/dL Calcium 8.6 (8.5-10.1) mg/dL Magnesium 1.9 (1.8-2.4) mg/dl Digoxin 0.4 L (0.9-2.0) ng/mL Carbamazepine (4.0-12.0) ug/mL 08/10/16 Range/Units 16:10 WBC (3.98-10.04) K/mm3 RBC (3.98-5.22) M/mm3 Hgb (11.2-15.7) gm/L Hct (34.1-44.9) % MCV (79.4-94.8) fl MCH (25.6-32.2) pg MCHC (32.2-35.5) g/dl RDW Std Deviation (36.4-46.3) fL Plt Count (182-369) K/mm3 MPV (9.4-12.3) fl Sodium (136-145) mEq/L Potassium (3.5-5.1) mEq/L Chloride (98-107) mEq/L Carbon Dioxide (21-32) mEq/L Anion Gap (5-15) BUN (7-18) mg/dL Creatinine (0.55-1.02) mg/dL Est Cr Clr Drug Dosing mL/min Estimated GFR (MDRD) (>60) mL/min BUN/Creatinine Ratio (14-18) Glucose (74-106) mg/dL Calcium (8.5-10.1) mg/dL Magnesium (1.8-2.4) mg/dl Digoxin (0.9-2.0) ng/mL Carbamazepine 3.5 L (4.0-12.0) ug/mL Med Orders - Current: Current Medications Discontinued Medications Acetaminophen (Tylenol) 650 mg PO Q4H PRN PRN Reason: Pain (Mild 1-3)/fever Hydrocodone Bitart/Acetaminophen ([place] 325-5 Mg) 1 tab PO Q4H PRN PRN Reason: Pain (moderate 4-6) Albuterol/Ipratropium (Duoneb 3.0-0.5 Mg/3 Ml) 3 ml NEB Q4H PRN PRN Reason: Shortness Of Breath/wheezing Apixaban (Eliquis) 5 mg PO BID [facility] Last Admin: 08/10/16 08:23 Dose: 5 mg Bisacodyl (Dulcolax) 5 mg PO DAILY PRN PRN Reason: Constipation Carbamazepine (Tegretol Tab) 200 mg PO DAILY@2200 [facility] Last Admin: 08/09/16 21:23 Dose: 200 mg Carbamazepine (Tegretol Tab) 200 mg PO ONETIME ONE Stop: 08/08/16 21:31 Last Admin: 08/08/16 22:06 Dose: 200 mg Cholecalciferol (Vitamin D3) 4,000 units PO DAILY [facility] Last Admin: 08/10/16 08:23 Dose: 4,000 units Digoxin (Lanoxin) 125 mcg IVPUSH Q4H [facility] Stop: 08/08/16 18:31 Last Admin: 08/08/16 18:29 Dose: 125 mcg Digoxin (Lanoxin) 125 mcg IVPUSH ONETIME ONE Stop: 08/08/16 06:16 Last Admin: 08/08/16 06:33 Dose: 125 mcg Digoxin (Lanoxin) 250 mcg PO DAILY [facility] Last Admin: 08/09/16 10:31 Dose: Not Given Diltiazem HCl (Diltiazem) 20 mg IVPUSH ONETIME ONE Stop: 08/07/16 23:10 Last Admin: 08/07/16 23:18 Dose: 20 mg Diltiazem HCl (Dilacor Xr) 240 mg PO DAILY [facility] Last Admin: 08/09/16 09:05 Dose: 240 mg Diltiazem HCl (Diltiazem) 25 mg IVPUSH ONETIME ONE Stop: 08/09/16 20:49 Last Admin: 08/09/16 21:22 Dose: 25 mg Enoxaparin Sodium (Lovenox) 140 mg SUBCUT ONETIME STA Stop: 08/08/16 02:30 Last Admin: 08/08/16 02:45 Dose: 140 mg Enoxaparin Sodium (Lovenox) 140 mg SUBCUT Q12HR DIMITRIS Last Admin: 08/08/16 22:07 Dose: 140 mg Hydralazine HCl (Apresoline) 20 mg IVPUSH Q4H PRN PRN Reason: Hypertension Hydromorphone HCl (Dilaudid) 0.25 mg IVPUSH Q2H PRN PRN Reason: Pain (severe 7-10) Diltiazem HCl 100 mg/ Sodium (Chloride) 100 mls @ 10 mls/hr IV TITRATE DIMITRIS; 10 MG/HR PRN Reason: Protocol Last Admin: 08/09/16 07:13 Dose: 20 mg/hr, 20 mls/hr Sodium Chloride (Normal Saline) 1,000 mls @ 150 mls/hr IV ASDIRECTED DIMITRIS Last Infusion: 08/08/16 04:34 Dose: 100 mls/hr Sodium Chloride (Normal Saline) 1,000 mls @ 100 mls/hr IV ASDIRECTED DIMITRIS Promethazine HCl 12.5 mg/ (Sodium Chloride) 50.5 mls @ 100 mls/hr IV Q6H PRN PRN Reason: Nausea/Vomiting Amiodarone HCl/Dextrose 150 mg (/ Premix) 100 mls @ 582.524 mls/hr IV .BOLUS ONE Stop: 08/09/16 10:39 Last Admin: 08/09/16 10:42 Dose: 582.524 mls/hr Amiodarone HCl/Dextrose (Nexterone In Dextrose 360 Mg/200 Ml) 200 mls @ 33.333 mls/hr IV ASDIRECTED ONE PRN Reason: Protocol Stop: 08/09/16 17:59 Last Infusion: 08/09/16 17:53 Dose: 16.6 mls/hr Amiodarone HCl/Dextrose 150 mg (/ Premix) 100 mls @ 600 mls/hr IV .BOLUS ONE Stop: 08/09/16 14:10 Last Admin: 08/09/16 14:09 Dose: 600 mls/hr Amiodarone HCl/Dextrose (Nexterone In Dextrose 360 Mg/200 Ml) Confirm Administered Dose 200 mls @ as directed .ROUTE .STK-MED ONE Stop: 08/09/16 17:47 Last Admin: 08/09/16 17:52 Dose: Not Given Amiodarone HCl/Dextrose (Nexterone In Dextrose 360 Mg/200 Ml) Confirm Administered Dose 200 mls @ as directed .ROUTE .STK-MED ONE Stop: 08/10/16 05:34 Last Admin: 08/10/16 05:37 Dose: Not Given Amiodarone HCl/Dextrose (Nexterone In Dextrose 360 Mg/200 Ml) 200 mls @ 33.333 mls/hr IV ASDIRECTED DIMITRIS PRN Reason: Protocol Last Admin: 08/10/16 05:39 Dose: 16.7 mls/hr Amiodarone HCl 300 mg/ (Dextrose/Water) 100 mls @ 283.019 mls/hr IV .BOLUS ONE Stop: 08/10/16 15:21 Last Admin: 08/10/16 15:22 Dose: 283.019 mls/hr Lorazepam (Ativan) 1 mg IV Q6H PRN PRN Reason: Anxiety Last Admin: 08/09/16 23:57 Dose: 1 mg Magnesium Sulfate (Pharmacy To Dose - Magnesium Replacement) 0 dose .XX ASDIRECTED PRN PRN Reason: rx dose Metoprolol Tartrate (Lopressor) 5 mg IVPUSH ONETIME ONE Stop: 08/08/16 02:15 Last Admin: 08/08/16 02:20 Dose: 5 mg Metoprolol Tartrate (Lopressor) 5 mg IVPUSH ONETIME ONE Stop: 08/08/16 02:50 Last Admin: 08/08/16 02:54 Dose: 5 mg Metoprolol Tartrate (Lopressor) 5 mg IVPUSH Q4H PRN PRN Reason: HR >110 Last Admin: 08/08/16 08:33 Dose: 5 mg Metoprolol Tartrate (Lopressor) Confirm Administered Dose 5 mg .ROUTE .STK-MED ONE Stop: 08/08/16 04:47 Last Admin: 08/08/16 05:00 Dose: Not Given Metoprolol Tartrate (Lopressor) 5 mg IVPUSH Q4H PRN PRN Reason: Tachycardia Last Admin: 08/09/16 17:28 Dose: 5 mg Metoprolol Tartrate (Lopressor) 50 mg PO Q12HR [facility] Last Admin: 08/08/16 22:07 Dose: 50 mg Metoprolol Tartrate (Lopressor) 100 mg PO Q12HR [facility] Last Admin: 08/10/16 08:23 Dose: 100 mg Metoprolol Tartrate (Lopressor) 10 mg IVPUSH Q4H PRN PRN Reason: Tachycardia Last Admin: 08/10/16 11:33 Dose: 10 mg Metoprolol Tartrate (Lopressor) 10 mg IVPUSH ONETIME ONE Stop: 08/10/16 12:26 Last Admin: 08/10/16 12:15 Dose: 10 mg Ondansetron HCl (Zofran) 4 mg IV Q6H PRN PRN Reason: Nausea/Vomiting Polyethylene Glycol (Miralax) 17 gm PO DAILY PRN PRN Reason: Constipation Potassium Chloride (Pharmacy To Dose - Potassium Replacement) 0 dose .XX ASDIRECTED PRN PRN Reason: rx dose Senna/Docusate Sodium (Senna Plus) 1 tab PO BID PRN PRN Reason: Constipation Temazepam (Restoril) 15 mg PO BEDTIME PRN PRN Reason: Sleep Verapamil HCl (Calan) 5 mg IVPUSH ONETIME ONE Stop: 08/09/16 18:58 Last Admin: 08/09/16 21:57 Dose: Not Given Verapamil HCl (Calan Sr) 180 mg PO BID [facility] Last Admin: 08/10/16 08:23 Dose: 180 mg Vitamin B Complex/Vitamin C (Super B With Vitamin C) 1 cap PO DAILY [facility] Last Admin: 08/10/16 08:24 Dose: 1 cap - Exam Quality Assessment: Reports: DVT prophylaxis General: Reports: alert, oriented, cooperative, no acute distress HEENT: Reports: Pupils equal, Pupils reactive Neck: Reports: supple, trachea midline Lungs: Reports: Normal respiratory effort Cardiovascular: Reports: Irregular Rhythm, Tachycardia Abdomen: Reports: bowel sounds present, soft, no tenderness, no distension (Female) Exam: Deferred Rectal (Female) Exam: Deferred Back Exam: Reports: normal inspection Extremities: Reports: no edema, normal pulses Skin: Reports: warm Neurological: Reports: no new focal deficit, normal gait, normal speech Psy/Mental Status: Reports: alert, normal affect, normal mood *Q Meaningful Use (DIS) - VTE *Q VTE Criteria *Q: - Stroke *Q Stroke Criteria *Q: - AMI *Q AMI Criteria *Q:
== END 2016-08-10 17:24 | DRG 308 ==
LOC: JD.ED 21:43 → JD.ICU 08-08 02:53
PROVIDERS: ADMIT Internal Medicine; ATTEND Internal Medicine
DX: I48.0 Paroxysmal atrial fibrillation (principal); J98.59 Other diseases of mediastinum, not elsewhere classified; R94.6 Abnormal results of thyroid function studies; I10 Essential (primary) hypertension; E78.5 Hyperlipidemia, unspecified; N39.3 Stress incontinence (female) (male); Z87.820 Personal history of traumatic brain injury; E66.9 Obesity, unspecified; Z68.30 Body mass index [BMI] 30.0-30.9, adult; Z88.8 Allergy status to other drugs, medicaments and biological substances; Z79.899 Other long term (current) drug therapy
CPT/HCPCS: 36415; 71020; 71020-26; 71275; 71275-26; 80048; 80053; 80156; 80162; 83735; 83880; 84439; 84443; 84484; 85025; 85027; 85379; 85610; 85730; 93005; 93306; 96361; 96372; 96374; 96375; 96376; 99285; 99285-25; A9270; A9270-GY; J0282; J1160; J1650; J2060; J3490; J7030; J7040; J7060

== ENCOUNTER 2017-01-21 19:16 | Emergency (ER) | payer OTHER ==
[2017-01-21 19:31] VITALS: BP 121/76
[2017-01-21] MEDS ORDERED: Sodium Chloride 0.9% 10 ML Syringe FLUSH PRN (19:50)
--- NOTE | 2017-01-21 21:58 | EDM.PDOC ---
ED HPI GENERAL MEDICAL PROBLEM - General Chief Complaint: Cardiovascular Problem Stated Complaint: IRREGULAR HEART BEAT, WEAKNESS Time Seen by Provider: 01/21/17 19:34 Source of Information: Reports: Patient History Limitations: Reports: No Limitations - History of Present Illness INITIAL COMMENTS - FREE TEXT/NARRATIVE: The patient presents with a rapid irregular heart beat. She has a history of this and she had an ablation done by Dr Mckay on Sunday. She was told to stop her sotolol. She has been doing good until today about 2 hours ago she had an irregular fast heart beat. She took the sotolol and drove here from [place]. By the time she got here she was better. When it came on, she had some chest pain and shortness of breath. That is gone now. She had no fever, chills, cough, congestion, runny nose, abdominal pain, nausea, or vomiting. Onset: Sudden Duration: Hour(s): (2) Location: Reports: Chest Quality: Reports: Pressure (and tightness) Severity: Moderate Improves with: Reports: None Worsens with: Reports: None Associated Symptoms: Reports: Chest Pain, Shortness of Breath. Denies: Fever/ Chills, Headaches, Nausea/Vomiting - Related Data Allergies Allergy/AdvReac Type Severity Reaction Status Date / Time divalproex sodium AdvReac Abdominal Verified 01/21/17 19:31 [From Depakote] Pain Home Meds: Home Meds Black Cohosh Root [Black Cohosh] 1 cap PO DAILY 08/08/16 [History] Cholecalciferol (Vitamin D3) [Vitamin D] 4,000 units PO DAILY 08/08/16 [History] Vitamin B Complex 1 cap PO DAILY 08/08/16 [History] Apixaban [Eliquis] 5 mg PO BID 01/21/17 [History] Diltiazem HCl [Diltiazem 24Hr Cd] 120 mg PO DAILY 01/21/17 [History] Lynn Eagle/Linoleic/Gamoleni [Evening Eagle 1,000 mg Sftg] 500 mg PO DAILY 01/21/17 [History] Famotidine 20 mg PO DAILY 01/21/17 [History] Magnesium Oxide [Magnesium] 400 mg PO DAILY 01/21/17 [History] carBAMazepine [TEGretol] 200 mg PO DAILY 01/21/17 [History] Past Medical History HEENT History: Reports: Impaired Vision Other HEENT History: Wears glasses Cardiovascular History: Reports: Afib Genitourinary History: Reports: Urinary Incontinence 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: Neurological History: Reports: Seizure Endocrine/Metabolic History: Reports: Obesity/BMI 30+ - Past Surgical History Cardiovascular Surgical History: Reports: Cardiac Ablation GI Surgical History: Reports: Cholecystectomy, Colonoscopy, Polypectomy Neurological Surgical History: Reports: Other (See Below) Other Neurological Surgeries/Procedures: tumor removal, benign Social & Family History - Family History Family Medical History: Noncontributory - Tobacco Use Smoking Status *Q: Never Smoker Second Hand Smoke Exposure: No - Caffeine Use Caffeine Use: Reports: None - Recreational Drug Use Recreational Drug Use: No - Living Situation & Occupation Living situation: Reports: , with Spouse, with Family Occupation: Employed ED ROS GENERAL - Review of Systems Review Of Systems: See Below Constitutional: Reports: No Symptoms HEENT: Reports: No Symptoms Respiratory: Reports: Shortness of Breath Cardiovascular: Reports: Chest Pain Endocrine: Reports: No Symptoms GI/Abdominal: Reports: No Symptoms : Reports: No Symptoms Musculoskeletal: Reports: No Symptoms Skin: Reports: No Symptoms Neurological: Reports: No Symptoms ED EXAM, GENERAL - Physical Exam Exam: See Below Exam Limited By: No Limitations General Appearance: Alert, No Apparent Distress Ears: Normal External Exam Nose: Normal Inspection Head: Atraumatic, Normocephalic Neck: Normal Inspection Respiratory/Chest: No Respiratory Distress, Lungs Clear, Normal Breath Sounds Cardiovascular: Regular Rate, Rhythm, No Edema, No Murmur GI/Abdominal: Soft, Non-Tender, No Organomegaly, No Mass Back Exam: Normal Inspection Extremities: Normal Inspection Neurological: Alert, Oriented, No Motor/Sensory Deficits EKG INTERPRETATION EKG Date: 01/21/17 Time: 20:08 Rhythm: NSR Rate (Beats/Min): 76 [place]: Normal P-Wave: Present QRS: Normal ST-T: Normal QT: Normal Course - Vital Signs Last Recorded V/S: Last Vital Signs Temp 96.1 F 01/21/17 19:24 Pulse 83 01/21/17 19:24 Resp 19 01/21/17 19:24 BP 121/76 01/21/17 19:24 Pulse Ox 99 01/21/17 19:24 - Orders/Labs/Meds Orders: Active Orders 24 hr Category Date Time Status Cardiac Monitoring [RC] . DIRECTED Care 01/21/17 19:50 Active EKG Documentation Completion [RC] STAT Care 01/21/17 19:50 Active Peripheral IV Care [RC] . DIRECTED Care 01/21/17 19:50 Active Chest 1V Frontal [CR] Stat Exams 01/21/17 19:50 Taken Sodium Chloride 0.9% [Saline Flush] Med 01/21/17 19:50 Active 10 ml FLUSH ASDIRECTED PRN Peripheral IV Insertion Adult [OM.PC] Stat Oth 01/21/17 19:50 Ordered Medication Orders Sodium Chloride (Saline Flush) 10 ml FLUSH ASDIRECTED PRN PRN Reason: Keep Vein Open Last Admin: 01/21/17 20:05 Dose: 10 ml Labs: Laboratory Tests 01/21/17 01/21/17 Range/Units 20:05 20:05 WBC 14.86 H (3.98-10.04) K/mm3 RBC 5.15 (3.98-5.22) M/mm3 Hgb 14.9 (11.2-15.7) gm/L Hct 45.3 H (34.1-44.9) % MCV 88.0 (79.4-94.8) fl MCH 28.9 (25.6-32.2) pg MCHC 32.9 (32.2-35.5) g/dl RDW Std Deviation 43.8 (36.4-46.3) fL Plt Count 298 (182-369) K/mm3 MPV 9.5 (9.4-12.3) fl Neut % (Auto) 66.1 (34.0-71.1) % Lymph % (Auto) 20.1 (19.3-51.7) % [place] % (Auto) 10.0 (4.7-12.5) % Eos % (Auto) 3.1 (0.7-5.8) Baso % (Auto) 0.3 (0.1-1.2) % Neut # (Auto) 9.83 H (1.56-6.13) K/mm3 Lymph # (Auto) 2.98 (1.18-3.74) K/mm3 [place] # (Auto) 1.48 H (0.24-0.36) K/mm3 Eos # (Auto) 0.46 H (0.04-0.36) K/mm3 Baso # (Auto) 0.05 (0.01-0.08) K/mm3 Sodium 141 (136-145) mEq/L Potassium 4.2 (3.5-5.1) mEq/L Chloride 103 (98-107) mEq/L Carbon Dioxide 25 (21-32) mEq/L Anion Gap 17.2 H (5-15) BUN 15 (7-18) mg/dL Creatinine 0.9 (0.55-1.02) mg/dL Est Cr Clr Drug Dosing 79.87 mL/min Estimated GFR (MDRD) > 60 (>60) mL/min BUN/Creatinine Ratio 16.7 (14-18) Glucose 85 (74-106) mg/dL Calcium 9.0 (8.5-10.1) mg/dL Total Bilirubin 0.3 (0.2-1.0) mg/dL AST 25 (15-37) U/L ALT 54 (14-59) U/L Alkaline Phosphatase 174 H (46-116) U/L Troponin I 0.134 H* (0.00-0.056) ng/mL Total Protein 7.6 (6.4-8.2) g/dl Albumin 3.6 (3.4-5.0) g/dl Globulin 4.0 gm/dL Albumin/Globulin Ratio 0.9 L (1-2) Meds: Medications Generic Name Dose Route Start Last Admin Trade Name Freq PRN Reason Stop Dose Admin Sodium Chloride 10 ml 01/21/17 19:50 01/21/17 20:05 Saline Flush FLUSH 10 ml ASDIRECTED PRN Administration Keep Vein Open - Re-Assessments/Exams Free Text/Narrative Re-Assessment/Exam: 01/21/17 21:58 I ordered an IV saline lock, labs, EKG and CXR. Her EKG shows a NSR with no acute changes. Her CXR shows no infiltrate. Her CBC and CMP look good. Her troponin was elevated at 0.134. Which is expected after the ablation. I called Dr Green the electrical and instrument engineer digital solutions architect at [facility] and he recommended she go back on the and Dr Mckay or his PA will call her on Sunday. Departure - Departure Time of Disposition: 22:00 Disposition: Home, Self-Care 01 Condition: Good Clinical Impression: Palpitations Referrals: PCP,None [Primary Care Provider] - Additional Instructions: Take the sotolol twice per day. Someone from Dr Mckay's office will call you on Sunday. Please return if you are worse. - My Orders Last 24 Hours: My Active Orders 01/21/17 19:50 Cardiac Monitoring [RC] . DIRECTED EKG Documentation Completion [RC] STAT Peripheral IV Care [RC] . DIRECTED Chest 1V Frontal [CR] Stat Sodium Chloride 0.9% [Saline Flush] 10 ml FLUSH ASDIRECTED PRN Peripheral IV Insertion Adult [OM.PC] Stat - Assessment/Plan Last 24 Hours: My Active Orders 01/21/17 19:50 Cardiac Monitoring [RC] . DIRECTED EKG Documentation Completion [RC] STAT Peripheral IV Care [RC] . DIRECTED Chest 1V Frontal [CR] Stat Sodium Chloride 0.9% [Saline Flush] 10 ml FLUSH ASDIRECTED PRN Peripheral IV Insertion Adult [OM.PC] Stat
--- NOTE | 2017-01-22 17:59 | CR ---
Chest: Portable view of the chest was obtained. Comparison: Previous chest x-ray of 08/07/[address] of 08/07/16. Slightly prominent right sided mediastinum is seen which is stable. Heart size is slightly enlarged. Tortuous thoracic aorta is seen. Lungs are clear with no acute infiltrates. Bony structures are grossly intact. Impression: 1. Mild cardiomegaly and other incidental findings. Nothing acute is appreciated on portable chest x-ray. Diagnostic code #2
== END 2017-01-21 22:10 | disposition home or self-care (01) ==
LOC: JD.ED 19:16
DX: R00.2 Palpitations (principal); E66.9 Obesity, unspecified; Z88.8 Allergy status to other drugs, medicaments and biological substances; Z79.899 Other long term (current) drug therapy; Z90.49 Acquired absence of other specified parts of digestive tract; Z68.41 Body mass index [BMI] 40.0-44.9, adult
CPT/HCPCS: 36415; 71010; 80053; 84484; 85025; 93005; 99285; J7050

== ENCOUNTER → 2020-11-12 | Day surgery (SDC) | payer OTHER ==
--- NOTE | 2020-11-11 09:29 | PCM.PREANE ---
Preanesthetic Assessment - Procedure Proposed Procedure: Anterior and Posterior Vaginal Repair with Perineoplasty - Anesthesia/Transfusion/Family Hx Anesthesia History: Prior Anesthesia Without Reaction Family History of Anesthesia Reaction: No Transfusion History: No Prior Transfusion(s) Intubation History: Unknown - Review of Systems General: No Symptoms (Patient currently taking phentermine for weight loss: last dose Sunday11/06/2020 Patient currently off phentermine total of 6 days.) Pulmonary: No Symptoms (RONA with CPAP) Cardiovascular: No Symptoms (History of Atrial fibrillation/times 2(2017 catheter ablation performed)), Palpitations (not currently present: one year ago with caffeine ingestion.) Gastrointestinal: No Symptoms (Hiatal henia), Difficulty Swallowing Neurological: No Symptoms (History of brain tumor with surgery noted in 1992: patient currently on tegretol for anticonvulsant therapy/motion sickness: denies PONV), Seizure (Last seizure in 2011) Other: Reports: None - Physical Assessment NPO Status Date: 11/11/20 NPO Status Time: 23:00 Vital Signs: HR: 75 Sat: 98% Temp: 97.7 Resp: 16 B/P: 136/69 Height: 1.83 m Weight: 122 kg ASA Class: 3 Mental Status: Alert & Oriented x3 Airway Class: Mallampati = 2 Dentition: Reports: Normal Dentition, Elephant Head(s), Caries - Lab Values: All labs reviewed and noted and within acceptable ranges to proceed with scheduled procedure. - Imaging/EKG Impressions: EKG: SR rate= 79, borderline intraventricular conduction delay Echocardiogram 07/2016: EF:55-60%, moderate left atrium dilation, mild concentric LVH - Allergies Allergies/Adverse Reactions: Allergies Allergy/AdvReac Type Severity Reaction Status Date / Time phenytoin [From Dilantin] Allergy Cannot Verified 11/11/20 10:53 Remember divalproex sodium AdvReac Abdominal Verified 11/11/20 10:53 [From Depakote] Pain - Anesthesia Plan Pre-Op Medication Ordered: Other (albuterol nebulizer in preop @0715) - Acknowledgements Anesthesia Type Planned: General Anesthesia Pt an Appropriate Candidate for the Planned Anesthesia: Yes Alternatives and Risks of Anesthesia Discussed w Pt/Guardian: Yes Pt/Guardian Understands and Agrees with Anesthesia Plan: Yes PreAnesthesia Questionnaire HEENT History: Reports: Impaired Vision Other HEENT History: Wears glasses Cardiovascular History: Reports: Afib Genitourinary History: Reports: Urinary Incontinence 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: Neurological History: Reports: Seizure Endocrine/Metabolic History: Reports: Obesity/BMI 30+ - Past Surgical History HEENT Surgical History: Reports: Tonsillectomy Cardiovascular Surgical History: Reports: Cardiac Ablation GI Surgical History: Reports: Cholecystectomy, Colonoscopy, Polypectomy Female Surgical History: Reports: D&C Neurological Surgical History: Reports: Other (See Below) Other Neurological Surgeries/Procedures: tumor removal, benign - HOME MEDS Home Medications: Home Meds Cholecalciferol (Vitamin D3) [Vitamin D] 4,000 units PO DAILY 08/08/16 [History] carBAMazepine [TEGretol] 200 mg PO DAILY 01/21/17 [History] Aspirin [Lo-Dose Aspirin EC] 81 mg PO DAILY 11/08/20 [History] Calcium Carb/Vitamin D3/Vit K1 [Viactiv 650 mg-12.5 Mcg Chew] 1 tab PO DAILY 11/08/20 [History] Doxylamine Succinate [Sleep Aid] 1 tab PO BEDTIME PRN 11/08/20 [History] Melatonin 20 mg PO BEDTIME PRN 11/08/20 [History] Phentermine HCl 37.5 mg PO ASDIRECTED 11/08/20 [History] - CURRENT (IN HOUSE) MEDS Current Meds: Current Medications Lactated Ringer's (Ringers, Lactated) 1,000 mls @ 125 mls/hr IV ASDIRECTED DIMITRIS Stop: 11/12/20 23:00 Lidocaine/Sodium Bicarbonate (Lidocaine 1%/Sod Bicarbonate In Ns 8.4% 1 Ml Syringe) 0.25 ml IDERM ONETIME PRN PRN Reason: Prior to IV Start Stop: 11/12/20 18:00 Sodium Chloride (Sodium Chloride 0.9% 10 Ml Syringe) 10 ml FLUSH ASDIRECTED PRN PRN Reason: Keep Vein Open Stop: 11/12/20 18:00
[~2020-11-12] MED LIST: Acetaminophen/oxyCODONE 325-5 MG Tab PO ONE; Acetaminophen/oxyCODONE 325-5 MG Tab PO PRN; Albuterol 0.083% 2.5 MG/3 ML Neb Soln NEB PRN; Bacitracin Oint 15 GM Tube ONE; Dexamethasone 4 MG/ML 5 ML MDV ONE; Glycopyrrolate 0.2 MG/ML SDV ONE; HYDROmorphone 0.5 MG/0.5 ML Syringe IVPUSH PRN; HYDROmorphone 0.5 MG/0.5 ML Syringe ONE; Ibuprofen 600 MG Tab PO PRN; Ketorolac 30 MG/ML SDV IVPUSH SCH; Ketorolac 30 MG/ML SDV ONE; Lactated Ringers 1,000 ML IV SCH; Lactated Ringers 1,000 ML ONE; Lidocaine 1% 4 ML ONE; Lidocaine 1% with EPINEPHrine 1:100,000 10 ML MDV ONE; Lidocaine 1%/Sod Bicarbonate in NS 8.4% 1 ML Syringe IDERM PRN; Midazolam 1 MG/ML 2 ML SDV IVPUSH PRN; Midazolam 1 MG/ML 2 ML SDV ONE; Ondansetron 4 MG Tab.DIS PO ONE; Ondansetron 4 MG/2 ML SDV IVPUSH PRN; Ondansetron 4 MG/2 ML SDV ONE; Propofol 200 MG/20 ML SDV ONE; Rocuronium 50 MG/5 ML Vial ONE; Sodium Chloride 0.9% 10 ML Syringe FLUSH PRN; Sodium Chloride 0.9% 50 ML SDV ONE; Succinylcholine/Sod PF 100 MG/5 ML SYRINGE IV ONE; ceFAZolin 1 GM Vial ONE; diphenhydrAMINE 50 MG/ML SDV IVPUSH PRN; ePHEDrine 50 MG/ML SDV IVPUSH PRN; ePHEDrine 50 MG/ML SDV ONE; fentaNYL 100 MCG/2 ML SDV IVPUSH PRN; fentaNYL 250 MCG/5 ML SDV ONE
--- NOTE | 2020-11-12 09:24 | PCM.POSTAN ---
POST ANESTHESIA ASSESSMENT - MENTAL STATUS Mental Status: Alert - VITAL SIGNS Vital Signs: Last Vital Signs Temp 36.7 C 11/12/20 09:15 Pulse 65 11/12/20 09:15 Resp 13 11/12/20 09:15 BP 150/77 H 11/12/20 09:15 Pulse Ox 100 11/12/20 09:15 - RESPIRATORY Respiratory Status: Respiratory Rate WNL, Airway Patent, O2 Saturation Stable, Supplemental Oxygen - CARDIOVASCULAR CV Status: Pulse Rate WNL, Blood Pressure Stable - GASTROINTESTINAL GI Status: No Symptoms - POST OP HYDRATION Hydration Status: Adequate & Stable
--- NOTE | 2020-11-12 09:43 | PCM.OPNOTE ---
- General Post-Op/Procedure Note Date of Surgery/Procedure: 11/12/20 Operative Procedure(s): 1. Anterior and posterior vaginal repair with perineoplasty. 2. Removal of mutiple genital skin tags Findings: 1. Grade 3 cystocele 2. Grade 2 rectocele 3. Multiple fibrocutaneous skin tags involving the genital area Pre Op Diagnosis: 1. Grade 23 cystocele. 2. Grade 2 rectocele. 3. 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 Fluid Replacement, Intraop: 1,100 EBL in mLs: 15 Complications: None Condition: Good Free Text/Narrative:: Surgery duration: 65 minutes Procedure: The patient is taken to the operating room and placed in a supine position on the operating table. She received 2 g of Ancef preoperatively for infection prophylaxis. She had sequential compression stockings in place for DVT prophylaxis. Patient was administered general endotracheal anesthesia. She was placed in a dorsal lithotomy position and prepped and draped in the usual fashion. Anterior vaginal repair was performed. Patient had emptied her bladder monogram operator to the OR. Weighted speculum was placed in the vagina and the uppermost portion of the cystocele was identified. Two Allis clamps was placed at that uppermost point at a position approximately 1-1/2 cm lateral to the midline A second Allis clamp was placed approximately 2 cm from the urethral meatus. The areas and infiltrated with lidocaine quarter percent with epinephrine. Approximately 8 mL was used. The 2 lateral Allis clamps were retracted and an epithelial incision was made between the 2 clamps. A midline incision was then made with a Metzenbaum scissors. The overlying epithelium was then dissected off of the underlying vesicovaginal fascia. This all to lateral which when approximately midline was felt to be adequate to reduce the cystocele. When this was done approximately 5 trapezoidal shaped sutures of 0 Monocryl were then placed reapproximating the lateral supportive tissue midline and reducing the rectocele. At this point the excess epithelium bilaterally was removed and the epithelium was closed in a running fashion with 2 short segments done in that fashion to attempt to decrease likelihood of shortening of the vagina. Rectocele was then performed. The uppermost portion of the rectocele was identified and was grasped midline with an Allis clamp. The introital area was grasped at approximately the 4:00 and 8:00 positions at the junction of the vaginal and vulvar epithelium. The area of epithelium was then infiltrated with lidocaine quarter percent with epinephrine. A ansley-shaped piece of epithelium was removed from the posterior introital and perineal area. The vaginal epithelium was then undermined superiorly to the top of the rectocele. Was then incised midline. With sharp and blunt dissection the epithelium was then dissected off of the underlying vesicovaginal fascia. At this point approximately 5 sutures of 0 Monocryl were placed to reapproximate the lateral supportive tissue midline and reduce the rectocele. The excess epithelium was then excised and the epithelium overlying the rectocele repair was then reapproximated with a running suture of 3-0 Monocryl. Perineoplasty was then performed with approximately 4 V-shaped stitches of 0 Monocryl in placed to reapproximate the lateral tissue midline, rebuild the perineum about 1 cm and the vagina approximately 1 cm. The epithelium of the introitus and perineal body was then reapproximated using 3-0 Monocryl in an episiotomy repair fashion. At this time sponge, instrument and needle counts were correct. The patient was returned to supine position and was discharged from the operating room in good condition.
--- NOTE | 2020-11-12 11:18 | PCM48HPAN ---
Post Anesthesia Note - EVALUATION WITHIN 48HRS OF ANESTHETIC Vital Signs in Normal Range: Yes Patient Participated in Evaluation: Yes Respiratory Function Stable: Yes Airway Patent: Yes Cardiovascular Function Stable: Yes Hydration Status Stable: Yes Pain Control Satisfactory: Yes Nausea and Vomiting Control Satisfactory: Yes Mental Status Recovered: Yes Vital Signs: Last Vital Signs Temp 36.7 C 11/12/20 10:50 Pulse 77 11/12/20 10:50 Resp 16 11/12/20 10:50 BP 158/74 H 11/12/20 10:50 Pulse Ox 99 11/12/20 10:50
[2020-11-12 13:21] VITALS: BP 158/83; PULSE 88
== END | disposition home or self-care (01) ==
LOC: JD.SDS 06:40
PROVIDERS: ATTEND Obstetrics & Gynecology
DX: N81.3 Complete uterovaginal prolapse (principal); K64.4 Residual hemorrhoidal skin tags; G47.33 Obstructive sleep apnea (adult) (pediatric); E66.9 Obesity, unspecified; Z68.36 Body mass index [BMI] 36.0-36.9, adult; Z88.8 Allergy status to other drugs, medicaments and biological substances
CPT/HCPCS: 56810; 57260; 81025; 94640; A9270; J0330; J0690; J1100; J1170; J1885; J2250; J2405; J2704; J2710; J3010; J3490; J7120; 00942; J2370